=== PATIENT | male | born 1985 | race Caucasian/White ===

== ENCOUNTER → 2022-04-08 08:42 | Outpatient (BNVA) | payer OTHER, SELFPAY | PROVIDERS: Visit Provider Psychiatry & Neurology Neurology | DX: M54.12 Radiculopathy, cervical region (principal); M54.2 Cervicalgia; M25.519 Pain in unspecified shoulder; R35.1 Nocturia | CPT/HCPCS: 99202 ==

== ENCOUNTER 2022-04-09 08:37 | Outpatient (REF) | payer OTHER, SELFPAY ==
--- NOTE | 2022-04-09 | EMG_ITS ---
This is a 37-year-old man with a 5-year history of weakness of right shoulder with inability to abduct it. There was no apparent injury. He has had an MRI of the joint and apparently does not have a tear of the ligament. PHYSICAL EXAMINATION: On examination, there is no atrophy of the deltoid or fasciculations. He has inability to abduct the right shoulder. Biceps, triceps, and infraspinatus strength is normal. 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 Rule out brachial plexopathy. Nerve conduction and EMG study: Normal nerve conduction study of the right upper extremity. EMG of the right upper extremity is consistent with a partial injury of the axillary nerve with some denervation as well as reinnervation potentials in the right deltoid. Suggest followup study in 6-8 weeks for better determination of recovery. MD JACOB Linton/ELINA / [id number]
== END 2022-04-09 08:38 | disposition home or self-care (01) ==
LOC: HO.NEURO 08:37
PROVIDERS: Visit Provider Psychiatry & Neurology Neurology
DX: M54.12 Radiculopathy, cervical region (principal)
CPT/HCPCS: 95885; 95910

== ENCOUNTER 2022-04-14 08:38 | Outpatient (REF) | payer OTHER, SELFPAY | END 2022-04-14 08:39 | disposition home or self-care (01) | LOC: HO.MDS 08:38 | PROVIDERS: Visit Provider Psychiatry & Neurology Neurology | DX: M54.12 Radiculopathy, cervical region (principal) | CPT/HCPCS: 96365; J2930 ==

== ENCOUNTER 2022-04-15 14:33 | Outpatient (REF) | payer OTHER, SELFPAY | END 2022-04-15 14:34 | disposition home or self-care (01) | LOC: HO.MDS 14:33 | PROVIDERS: Visit Provider Psychiatry & Neurology Neurology | DX: M54.12 Radiculopathy, cervical region (principal) | CPT/HCPCS: 96365; J2930 ==

== ENCOUNTER 2022-04-16 16:00 | Outpatient (REF) | payer OTHER, SELFPAY | END 2022-04-16 16:01 | disposition home or self-care (01) | LOC: HO.MDS 16:00 | PROVIDERS: Visit Provider Psychiatry & Neurology Neurology | DX: M54.12 Radiculopathy, cervical region (principal) | CPT/HCPCS: 96365 ==

== ENCOUNTER 2022-04-17 15:16 | Outpatient (REF) | payer OTHER, SELFPAY | END 2022-04-17 15:17 | disposition home or self-care (01) | LOC: HO.MDS 15:16 | PROVIDERS: Visit Provider Psychiatry & Neurology Neurology | DX: M54.12 Radiculopathy, cervical region (principal) | CPT/HCPCS: 96365; J2930 ==

== ENCOUNTER 2022-04-18 12:14 | Outpatient (REF) | payer OTHER, SELFPAY | END 2022-04-18 12:15 | disposition home or self-care (01) | LOC: HO.MDS 12:14 | PROVIDERS: Visit Provider Psychiatry & Neurology Neurology | DX: G35 Multiple sclerosis (principal); M54.12 Radiculopathy, cervical region | CPT/HCPCS: 96365; J2930 ==

== ENCOUNTER 2022-07-02 11:00 | Outpatient (RCR) | payer OTHER, SELFPAY ==
--- NOTE | 2022-04-16 16:31 | MHC.PT.EP ---
[facility] [place] Office [place] [facility] [place] [facility] [address] [phone] F: [phone] F: [phone] F: [phone] F: [phone] Physical Therapy Plan of Care Date of Evaluation: Date of Surgery: NA Diagnosis: RADICULOPATHY CERVICAL REGION, R UE/SHLDER WEAKNESS AND RESTRICTION. TENS Assessment: Pt IS 37 YO M REFERRED TO PT FROM [facility] (BIJAN WU NP) WITH CERVICAL RADICULOPATHY. Pt REPORTS 6 WK HX OF FAIRLY SUDDEN ONSET OF R SHLDER AND LAT NECK PAIN F/B DECREASED STRENGTH R UE. HAS HAD VARIOUS TESTS AND MED TRIALS WITH FOLLOW BY NEUROLOGY (AND APPT AT [facility]). HAS HAD THE DIAGNOSES OF BRACHIAL PLEXUS INVOLVEMENT AND PARSONAGE-HODGE SYNDROME. Pt REPORTS LESS PAIN (THAN AT INIT ONSET) R SHLDER BUT CONTINUED LIMITED STRENGTH. EMG + AXILLARY NERVE INVOLVEMENT. PRESENTS WITH DECREASED STRENGTH R SHLDER ER, ABD, FLEXION. PROM R SHLDER WNLS. TENS HAS BEEN RECOMMENDED BY [facility] (Pt HAS PURCHASED). MAY BENEFIT FROM TRIAL NMES, CERV TX, UE STRENGTHENING JEFRY. Frequency and Duration: The patient will be seen 2X/WK X 8 WKS Short Term Goals: 1. INCREASED AWARENESS POSTURE AND SHLDER CARE 2. INCREASED STRENGTH R SHLDER FLEX, ABD, ER 1/2 MM GRADE 3. I HEP WITH DC EX PLAN 4. IMPROVED SLEEP Toe Stapler Goals: 1. INCREASED R SHLDER STRENGTH 1 MM GRADE AT LEAST 2. INCREASED USE R UE REPORTED BY Pt 3. IMPROVED SPADI (101/130 SOC), 4. IMPROVED NPDI (23/50 SOC) Treatment Plan: Modalities to reduce pain, spasms and effusion. Manual therapy to restore motion and function. Therapeutic exercise to improve strength and flexibility. Neuromuscular re-education for posture and balance. Therapeutic activities to return to functional activities of daily living. Electronically signed by: SLIM STEEL PT Please sign and return to therapist. Thank you for your referral.
== END 2022-08-05 14:46 | disposition home or self-care (01) ==
LOC: HO.PTWFD 11:00
PROVIDERS: Visit Provider Psychiatry & Neurology Neurology
DX: M54.12 Radiculopathy, cervical region (principal)
CPT/HCPCS: 97012; 97014; 97110; 97140; 97162; 97530; 97535